=== PATIENT | male | born 1970 | race Caucasian/White ===

== ENCOUNTER 2021-12-14 15:46 | Emergency (ER) | payer SELFPAY ==
[2021-12-14] VITALS (14 sets, daily range): BP systolic 158–205; BP diastolic 85–109; PULSE 69–90; RESP 11–27; TEMP 36.2; O2SAT 94–100
--- NOTE | 2021-12-14 15:57 | DI.RAD.S_ITS ---
PROCEDURE: XR CHEST 1V INDICATIONS: chest pain TECHNIQUE: One view of the chest was acquired. COMPARISON: None. FINDINGS: Surgical changes and devices: None. Lungs and pleura: Lungs are clear. No pleural effusions or pneumothorax. Mediastinum: Mediastinal contours appear normal. Heart size is normal. Bones and chest wall: No suspicious bony lesions. Overlying soft tissues appear unremarkable. A heart moderate overlies the mid thorax. IMPRESSION: No acute cardiopulmonary process is seen. Dictated by: Deo Nuñez M.D. on 12/14/2021 at 15:32 Approved by: Deo Nuñez M.D. on 12/14/2021 at 15:32
[2021-12-14] MEDS: LORazepam 2 MG/ML INJ 1 MG IV (16:11)
[2021-12-14 16:22] LABS: Add Manual Diff / Slide Review NO; Basophils Absolute Auto 100 /uL (0-100); Basophils Percent Auto 0.9 % (0-2); Eosinophils Absolute Auto 300 /uL (0-450); Eosinophils Percent Auto 2.8 % (2-4); Hematocrit 44.4 % (41-53); Hemoglobin 15.5 g/dL (13.5-17.5); Lymphocytes Absolute Auto 4900 /uL (1100-4500); Lymphocytes Percent Auto 52.5 % (25-40); Mean Corpuscular Hemoglobin 33.2 PG (26-34); Monocytes Absolute Auto 800 /uL (0-900); Monocytes Percent Auto 8.6 % (3-14); Neutrophils Absolute Auto 3300 /uL (1500-7000); Neutrophils Percent Auto 35.2 % (50-75); Platelet Count 247 X10^3/uL (150-400); Red Blood Cell Count 4.68 X10^6/uL (4.5-5.9); Red Cell Distribution Width 12.8 % (11.6-14.8); White Blood Cell Count 9.3 X10^3/uL (4.5-11.0)
[2021-12-14 16:27] LABS: INR 0.9 (0.9-1.3)
[2021-12-14 16:29] LABS: PTT Partial Thromboplastin Tim 33 SECONDS (26.4-36.2)
[2021-12-14 16:35] LABS: Alanine Aminotransferase 23 IU/L (<50); Albumin 4.4 g/dL (3.5-5.0); Albumin Globulin Ratio 1.6 (1.0-2.8); Alkaline Phosphatase 77 U/L (38-126); Aspartate Aminotransferase 26 IU/L (17-59); BUN Creatinine Ratio 15.4 (6-22); Bilirubin Total 0.4 mg/dL (0.2-1.3); Blood Urea Nitrogen 12 mg/dL (9-20); Carbon Dioxide 24 mmol/L (22-32); Chloride 101 mmol/L (98-107); Creatine Kinase 67 U/L (55-170); Estimated Glomerular Filt Rate > 60.0 mL/min (>60); Globulin 2.7 g/dL (1.7-4.1); Glucose 135 mg/dL (70-100); HEMOLYSIS 25 (0-50); Lipase 193 U/L (23-300); Magnesium 1.8 mg/dL (1.6-2.3); Potassium 3.7 mmol/L (3.4-5.1); Sodium 135 mmol/L (137-145); Total Protein 7.1 g/dL (6.3-8.2)
[2021-12-14 16:45] LABS: Troponin I < 0.012 ng/mL (0.01-0.034)
--- NOTE | 2021-12-14 16:58 | ED_ITS ---
HPI - Chest Pain General Chief Complaint: Chest Pain Stated Complaint: chest pain Time Seen by Provider: 12/14/21 16:00 Source: patient and family Mode of arrival: Ambulatory Limitations: no limitations History of Present Illness HPI narrative: Patient is a 51-year-old male with history of acid reflux, presents today with chest pain. He says he has had chest pain off and on for couple of weeks he has been seen by his doctor for. He has been placed on acid reflux medicine actually [facility]. They live in [place] came here for recent get a why. Today he was at [employer] eating when he had chest pain that radiated to his jaw. He took Tums which usually helps did not go away we came to the emergency department. Initially quite anxious but seems to have calmed down. He has no shortness of breath. No nausea or vomiting. Not had any fever or chills. Related Data Allergies Allergy/AdvReac Type Severity Reaction Status Date / Time Penicillins Allergy Unknown Verified 12/14/21 15:57 Review of Systems Review of Systems Narrative: GENERAL: Denies chills, fatigue, malaise, fever, sweats, travel HEENT: Denies sinus pain, ear pain, sore throat, difficulty swallowing, neck pain RESPIRATORY: Denies dyspnea, cough, wheezing, hemoptysis, sputum. CARDIOVASCULAR: See HPI GASTROINTESTINAL: Denies nausea, vomiting, abdominal pain, diarrhea, constipation, melena. : Denies dysuria, frequency, incontinence, hematuria, urinary retention, flank pain. MUSCULOSKELETAL: Denies weakness, joint pain, or bony pain SKIN: No rash, no erythema, no pruritus NEUROLOGIC: Denies weakness, dizziness, headache, numbness, change in speech, confusion PSYCHIATRIC: No concerning psychosocial issues. 12 point review of systems is negative except for those stated above and HPI Patient History Social History Smoking Status: Never smoker Smoking Status: Never smoker alcohol intake frequency: 0-2 drinks per day Substance Use Type: does not use Exam Initial Vital Signs Initial Vital Signs: Vital Signs Temperature 97.1 F L 12/14/21 15:53 Pulse Rate 90 12/14/21 15:53 Respiratory Rate 18 12/14/21 15:53 Blood Pressure 205/109 H 12/14/21 15:53 Pulse Oximetry 100 12/14/21 15:53 GENERAL: [Well-appearing, well-nourished] and in [no acute] distress. HEENT: Head atraumatic,EOMI, pupils reactive, face symmetric, [moist] mucous mem branes CARDIOVASCULAR: Regular rate and rhythm without murmurs, rubs or gallops. RESPIRATORY: Breath sounds equal bilaterally, no wheezes rales or rhonchi. ABDOMEN: Soft, nontender. Normoactive bowel sounds all 4 quadrants. No guarding or rebound. EXTREMITIES: Normal range of motion, no clubbing or edema. Neurovascularly intact NEUROLOGICAL: Alert and oriented x4.Normal gait and speech. SKIN: Warm, dry, no laceration, no petechiae, no rashes or lesions. Scores HEART Score Heart Score history: Slightly Suspicious Heart Score EKG: Normal Heart Score Age: 45-64 years old Heart Score risk factors: 1-2 risk factors Heart Score troponin: < or = to normal limit Heart Score Total: 2 Course Orders Ordered: Discontinued Medications Lorazepam (Lorazepam 2 Mg/Ml Inj) 1 mg IV NOW ONE Stop: 12/14/21 16:01 Last Admin: 12/14/21 16:11 Dose: 1 mg Documented by: IVANA Pantoprazole Sodium (Pantoprazole 40 Mg Vial) 40 mg IV NOW ONE Stop: 12/14/21 16:15 Last Admin: 12/14/21 17:03 Dose: 40 mg Documented by: IVANA Vital Signs Vital signs: Vital Signs - 8 hr 12/14/21 15:53 12/14/21 15:56 12/14/21 16:00 Temperature 97.1 F L Pulse Rate 90 83 81 Respiratory Rate 21 27 H 20 Blood Pressure 205/109 H 197/85 H 202/100 H Pulse Oximetry 94 100 100 12/14/21 16:15 Temperature Pulse Rate 82 Respiratory Rate 16 Blood Pressure 175/96 H Pulse Oximetry 100 MDM - Chest Pain Lab Data Result diagrams: 12/14/21 15:50 12/14/21 15:50 Labs: Lab Results 12/14/21 12/14/21 12/14/21 Range/Units 15:50 15:50 15:50 WBC 9.3 (4.5-11.0) X10^3/uL RBC 4.68 (4.5-5.9) X10^6/uL Hgb 15.5 (13.5-17.5) g/dL Hct 44.4 (41-53) % MCV 95.0 (80-100) fL MCH 33.2 (26-34) PG MCHC 35.0 (30-36) % RDW 12.8 (11.6-14.8) % Plt Count 247 (150-400) X10^3/uL Neut % (Auto) 35.2 L (50-75) % Lymph % (Auto) 52.5 H (25-40) % Dickinson % (Auto) 8.6 (3-14) % Eos % (Auto) 2.8 (2-4) % Baso % (Auto) 0.9 (0-2) % Neut # (Auto) 3300 (7632-6322) /uL Lymph # (Auto) 4900 H (8491-8739) /uL Dickinson # (Auto) 800 (0-900) /uL Eos # (Auto) 300 (0-450) /uL Baso # (Auto) 100 (0-100) /uL PT 10.0 L (10.1-12.7) SECONDS INR 0.9 (0.9-1.3) APTT 33 (26.4-36.2) SECONDS Sodium 135 L (137-145) mmol/L Potassium 3.7 (3.4-5.1) mmol/L Chloride 101 (98-107) mmol/L Carbon Dioxide 24 (22-32) mmol/L BUN 12 (9-20) mg/dL Creatinine 0.78 (0.66-1.25) mg/dL Estimated GFR > 60.0 (>60) mL/min BUN/Creatinine Ratio 15.4 (6-22) Glucose 135 H (70-100) mg/dL Calcium 9.0 (8.4-10.2) mg/dL Magnesium 1.8 (1.6-2.3) mg/dL Total Bilirubin 0.4 (0.2-1.3) mg/dL AST 26 (17-59) IU/L ALT 23 (<50) IU/L Alkaline Phosphatase 77 (38-126) U/L Total Creatine Kinase 67 (55-170) U/L CK-MB (CK-2) TNP CK-MB (CK-2) Rel Index TNP Troponin I < 0.012 (0.01-0.034) ng/mL Total Protein 7.1 (6.3-8.2) g/dL Albumin 4.4 (3.5-5.0) g/dL Globulin 2.7 (1.7-4.1) g/dL Albumin/Globulin Ratio 1.6 (1.0-2.8) Lipase 193 (23-300) U/L 12/14/21 Range/Units 18:15 WBC (4.5-11.0) X10^3/uL RBC (4.5-5.9) X10^6/uL Hgb (13.5-17.5) g/dL Hct (41-53) % MCV (80-100) fL MCH (26-34) PG MCHC (30-36) % RDW (11.6-14.8) % Plt Count (150-400) X10^3/uL Neut % (Auto) (50-75) % Lymph % (Auto) (25-40) % Dickinson % (Auto) (3-14) % Eos % (Auto) (2-4) % Baso % (Auto) (0-2) % Neut # (Auto) (6581-9370) /uL Lymph # (Auto) (6253-8007) /uL Dickinson # (Auto) (0-900) /uL Eos # (Auto) (0-450) /uL Baso # (Auto) (0-100) /uL PT (10.1-12.7) SECONDS INR (0.9-1.3) APTT (26.4-36.2) SECONDS Sodium (137-145) mmol/L Potassium (3.4-5.1) mmol/L Chloride (98-107) mmol/L Carbon Dioxide (22-32) mmol/L BUN (9-20) mg/dL Creatinine (0.66-1.25) mg/dL Estimated GFR (>60) mL/min BUN/Creatinine Ratio (6-22) Glucose (70-100) mg/dL Calcium (8.4-10.2) mg/dL Magnesium (1.6-2.3) mg/dL Total Bilirubin (0.2-1.3) mg/dL AST (17-59) IU/L ALT (<50) IU/L Alkaline Phosphatase (38-126) U/L Total Creatine Kinase (55-170) U/L CK-MB (CK-2) CK-MB (CK-2) Rel Index Troponin I < 0.012 (0.01-0.034) ng/mL Total Protein (6.3-8.2) g/dL Albumin (3.5-5.0) g/dL Globulin (1.7-4.1) g/dL Albumin/Globulin Ratio (1.0-2.8) Lipase (23-300) U/L Imaging Data Chest x-ray: Radiologist's Impression: [address] [address] XRay Report Signed Patient: Pako Mayer MR#: [id number] : 1970 Acct:[id number] Age/Sex: 51 / M Date of Service: 12/14/21 Loc: ED Accession Number: [id number] ?? Procedure: XR chest 1V Ordering Provider: Suzy Bateman D.O. PROCEDURE:? XR CHEST 1V ? INDICATIONS:? chest pain ? TECHNIQUE:? One view of the chest was acquired.? ? COMPARISON:? None. ? FINDINGS:? ? Surgical changes and devices:? None.? ? Lungs and pleura:? Lungs are clear.? No pleural effusions or pneumothorax.? ? Mediastinum:? Mediastinal contours appear normal.? Heart size is normal.? ? Bones and chest wall:? No suspicious bony lesions.? Overlying soft tissues appear unremarkable.? A heart moderate overlies the mid thorax. ? ? IMPRESSION:? ? No acute cardiopulmonary process is seen.? Dictated by: Deo Nuñez M.D. on 12/14/2021 at 15:32 ? ? ECG Data Interpretation: Normal sinus rhythm rate 86 CT interval 190 QRS [address] changes no T- wave inversions no priors to compare MDM Narrative Medical decision making narrative: The patient is having chest discomfort. 2- troponins no EKG changes. He has been seen by his primary care provider for this he actually has stress test next week. Patient was very anxious when he 1st arrived he was given a dose of Ativan which helped him tremendously. He has had no further episodes of chest discomfort here in emergency department. Encouraged him that if he should have recurrent discomfort to return to the nearest ED. Discharge Plan Departure Patient Disposition: Home Clinical Impression: Atypical chest pain Instructions: DI for Atypical Chest Pain Activity Restrictions/Additional Instructions: *You have been diagnosed with atypical chest pain *What to do: At this time blood work and EKG are all reassuring. 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
[2021-12-14] MEDS: PANTOPRAZOLE 40 MG VIAL IV (17:03)
[2021-12-14 18:49] LABS: Troponin I < 0.012 ng/mL (0.01-0.034)
== END 2021-12-14 19:15 | disposition home or self-care (01) ==
PROVIDERS: Emergency Provider Emergency Medicine
DX: R07.89 Other chest pain (principal)
CPT/HCPCS: 36415; 71045; 80053; 82550; 82962; 83690; 83735; 84484; 85025; 85610; 85730; 93005; 93010; 96374; 96375; 99284; C9113; J2060